=== PATIENT | female | born 2000 | race Caucasian/White ===

== ENCOUNTER 2021-01-28 07:19 | Observation (INO) ==
[2021-01-28] MEDS ORDERED: ONDANSETRON INJ 2 MG/ML 2 ML VIAL IV STA (09:35)
[2021-01-28] MEDS ORDERED: SODIUM CHLORIDE 0.9% 1000ML 1,000 ML IV STA (09:35)
[2021-01-28] MEDS ORDERED: MoRPHine SULFATE 4 MG/ML 1 ML CARP\\VIAL IV STA (09:35)
--- NOTE | 2021-01-28 09:40 | Emergency Department Note ---
History of Present Illness General Chief complaint: Abdominal Pain Stated complaint: CROHNS FLARE UP - ABDOMINAL PAIN x 6DYS Time Seen by Provider: 01/28/21 07:22 Source: patient Mode of arrival: ambulatory Limitations: no limitations History of Present Illness Maximum Pain Intensity: 5 This patient is a 21-year-old female who comes in complaining of abdominal pain and a Crohn's flareup. She says she has been having symptoms for about 6 days she moved here from [place] a couple months ago has no local doctor or GI specialist. Abdominal pain is diffuse and intermittent she has had some diarrhea without blood she had one episode of vomiting but none since yesterday. No fever chills she is had the Covid vaccine x2. Nothing particular makes her better or worse. No dysuria hematuria denies . She says she was hospitalized in [facility] in [place] about a month and a half or 2 ago for bowel obstruction. She is on no current medications for Crohns. She has had no Crohn's surgery she did have an appendectomy Home Medications Medication Instructions Recorded Confirmed Type dicyclomine 20 mg tablet 20 mg PO BID PRN 01/28/21 01/28/21 History duloxetine 30 mg capsule,delayed 90 mg PO DAILY 01/28/21 01/28/21 History release (Cymbalta) trazodone 100 mg tablet 200 mg PO HS PRN 01/28/21 01/28/21 History Allergies Allergy/AdvReac Type Severity Reaction Status Date / Time No Known Allergies Allergy Unverified 01/28/21 08:21 Past Med/Surg History Medical History Crohn's disease Depression with anxiety Insomnia Surgical History History of adenoidectomy History of appendectomy History of tonsillectomy Social History Smoking Status: Current every day smoker Feels Safe at Home: Yes Immunizations: Past medical historyCrohn's disease. Appendectomy. Social history. She does smoke. Does not drink significantly. Denies drug use. 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 Review of Systems A total of 10 systems reviewed and were otherwise negative Physical Exam Vital Signs Vital Signs - 24 hr 01/28/21 07:24 01/28/21 09:30 01/28/21 11:00 Temperature 36.7 C Temperature Source Oral Pulse Rate 95 H Pulse Rate [Left Finger] 85 Respiratory Rate 18 18 Respiratory Effort / Characteristics Non-Labored Respiratory Depth Normal Respiratory Pattern Regular Blood Pressure 134/85 Blood Pressure [Right Arm] 124/88 126/88 Blood Pressure Mean 101 Blood Pressure Mean [Right Arm] 100 100 Blood Pressure Position [Right Arm] Lying Pulse Oximetry 99 97 Oxygen Delivery Method Room Air Room Air Sepsis Recent Fever Within 48 Hours No Sepsis New/Unexplained Change in Mental Status No Sepsis Action Taken by Nursing No Action Required 01/28/21 13:00 Temperature Temperature Source Pulse Rate Pulse Rate [Left Finger] Respiratory Rate 18 Respiratory Effort / Characteristics Non-Labored Respiratory Depth Normal Respiratory Pattern Regular Blood Pressure Blood Pressure [Right Arm] Blood Pressure Mean Blood Pressure Mean [Right Arm] Blood Pressure Position [Right Arm] Pulse Oximetry Oxygen Delivery Method Room Air Sepsis Recent Fever Within 48 Hours Sepsis New/Unexplained Change in Mental Status Sepsis Action Taken by Nursing General: Well developed well nourished young female who appears in no acute distress, breathing comfortably on room air. Normal speech HEENT: Normal cephalic atraumatic. Pupils are equal round and reactive to light. Extraocular movements are intact. Oropharynx is pink with moist mucous membranes. No swelling of the mouth lips or tongue. Neck: Supple with a midline trachea. No meningeal signs or stiffness, no JVD or bruits. No Stridor. Chest: Clear to auscultation bilaterally. No wheezes or rhonchi. No increased work of breathing. Heart: Regular rate and rhythm without murmurs or gallops. Abdomen: Soft normally diffusely tender, nondistended without rebound guarding or rigidity. Extremities: No cyanosis clubbing or edema. No calf tenderness or assymetry Spine/Back. Non tender to palpation. No CVA tenderness Skin: Good turgor without rashes. Neurologic exam: Cranial nerves two through 12 are intact. Motor and sensation are intact and symmetrical throughout. Course Administered Medications Discontinued Medications Sodium Chloride (Nss 1000ml) 1,000 mls @ 999 mls/hr IV .Q1H1M STA Stop: 01/28/21 10:35 Last Admin: 01/28/21 10:30 Dose: 999 mls/hr Documented by: [id number] Ioversol (Optiray 320 100ml) 94 ml IV ONCE ONE Stop: 01/28/21 11:10 Last Admin: 01/28/21 11:09 Dose: 94 ml Documented by: [id number] Morphine Sulfate (Morphine Sulfate 4 Mg/Ml 1 Ml Carp\Vial) 4 mg IV NOW STA Stop: 01/28/21 09:36 Last Admin: 01/28/21 10:30 Dose: 4 mg Documented by: [id number] Ondansetron HCl (Ondansetron Inj 2 Mg/Ml 2 Ml Vial) 4 mg IV NOW STA Stop: 01/28/21 09:36 Last Admin: 01/28/21 10:30 Dose: 4 mg Documented by: [id number] Medical Decision Making Differential Diagnosis Crohn's exacerbation, bowel obstruction, infection, electrolyte or metabolic abnormality, Home Medications Current Medication List: was personally reviewed by me Laboratory Data Attestation: I reviewed the patient's lab results. Result diagrams: 01/28/21 10:20 01/28/21 10:20 Lab Results 01/28/21 01/28/21 01/28/21 Range/Units 07:50 10:20 10:20 WBC 11.72 H (4.8-10.8) K/uL RBC 5.19 (4.2-5.4) M/uL Hgb 15.7 (12.0-16.0) g/dL Hct 47.1 H (37-47) % MCV 90.8 (80-100) fL MCH 30.3 (25-34) pg MCHC 33.3 (32-36) g/dL RDW Std Deviation 42.9 (36.4-46.3) fL RDW Coeff of April 13.0 (11.5-14.5) % Plt Count 549 H (130-400) K/uL MPV 9.9 (7.4-10.4) fL Immature Gran % (Auto) 0.3 % Neut % (Auto) 68.1 % Lymph % (Auto) 23.3 % [place] % (Auto) 6.8 % Eos % (Auto) 1.2 % Baso % (Auto) 0.3 % Neut # (Auto) 7.98 H (1.4-6.5) K/uL Lymph # (Auto) 2.73 (1.2-3.4) K/uL [place] # (Auto) 0.80 H (0.11-0.59) K/uL Eos # (Auto) 0.14 (0-0.5) K/uL Baso # (Auto) 0.03 (0-0.2) K/uL Immature Gran # (Auto) 0.04 H (0.00-0.02) K/uL ESR (0-20) mm/hr Sodium 136 (136-145) mmol/L Potassium 4.1 (3.5-5.1) mmol/L Chloride 105 (98-107) mmol/L Carbon Dioxide 26 (21-32) mmol/L Anion Gap 5.0 (3-11) BUN 11 (7-18) mg/dl Creatinine 0.79 (0.6-1.2) mg/dl Est Cr Clr Drug Dosing 119.0 ml/min Est GFR ( Amer) 124.9 ml/min Est GFR (Non-Af Amer) 107.8 ml/min BUN/Creatinine Ratio 14.6 (10-20) Glucose 86 (70-99) mg/dl Calcium 10.0 (8.5-10.1) mg/dl Total Bilirubin 0.6 (0.2-1) mg/dl AST 14 L (15-37) U/L ALT 29 (12-78) U/L Alkaline Phosphatase 55 (45-117) U/L C-Reactive Protein (0-0.29) mg/dl Total Protein 8.4 H (6.4-8.2) gm/dl Albumin 3.9 (3.4-5.0) gm/dl Globulin 4.5 H (2.5-4.0) gm/dl Albumin/Globulin Ratio 0.9 (0.9-2) Lipase 103 (73-393) U/L HCG, Qual (Negative) Urine Color Yellow Urine Appearance Clear (Clear) Urine pH 6.5 (4.5-7.5) Ur Specific [place] 1.023 (1.000-1.030) Urine Protein Negative (Negative) Urine Glucose (UA) Negative (Negative) Urine Ketones 1+ H (Negative) Urine Blood Negative (Negative) Urine Nitrite Negative (Negative) Urine Bilirubin Negative (Negative) Urine Urobilinogen Negative (Negative) Ur Leukocyte Esterase Negative (Negative) 01/28/21 01/28/21 01/28/21 Range/Units 10:20 10:20 10:20 WBC (4.8-10.8) K/uL RBC (4.2-5.4) M/uL Hgb (12.0-16.0) g/dL Hct (37-47) % MCV (80-100) fL MCH (25-34) pg MCHC (32-36) g/dL RDW Std Deviation (36.4-46.3) fL RDW Coeff of April (11.5-14.5) % Plt Count (130-400) K/uL MPV (7.4-10.4) fL Immature Gran % (Auto) % Neut % (Auto) % Lymph % (Auto) % [place] % (Auto) % Eos % (Auto) % Baso % (Auto) % Neut # (Auto) (1.4-6.5) K/uL Lymph # (Auto) (1.2-3.4) K/uL [place] # (Auto) (0.11-0.59) K/uL Eos # (Auto) (0-0.5) K/uL Baso # (Auto) (0-0.2) K/uL Immature Gran # (Auto) (0.00-0.02) K/uL ESR 39 H (0-20) mm/hr Sodium (136-145) mmol/L Potassium (3.5-5.1) mmol/L Chloride (98-107) mmol/L Carbon Dioxide (21-32) mmol/L Anion Gap (3-11) BUN (7-18) mg/dl Creatinine (0.6-1.2) mg/dl Est Cr Clr Drug Dosing ml/min Est GFR ( Amer) ml/min Est GFR (Non-Af Amer) ml/min BUN/Creatinine Ratio (10-20) Glucose (70-99) mg/dl Calcium (8.5-10.1) mg/dl Total Bilirubin (0.2-1) mg/dl AST (15-37) U/L ALT (12-78) U/L Alkaline Phosphatase (45-117) U/L C-Reactive Protein 2.02 H (0-0.29) mg/dl Total Protein (6.4-8.2) gm/dl Albumin (3.4-5.0) gm/dl Globulin (2.5-4.0) gm/dl Albumin/Globulin Ratio (0.9-2) Lipase (73-393) U/L HCG, Qual Negative (Negative) Urine Color Urine Appearance (Clear) Urine pH (4.5-7.5) Ur Specific [place] (1.000-1.030) Urine Protein (Negative) Urine Glucose (UA) (Negative) Urine Ketones (Negative) Urine Blood (Negative) Urine Nitrite (Negative) Urine Bilirubin (Negative) Urine Urobilinogen (Negative) Ur Leukocyte Esterase (Negative) Imaging Data Radiologist's Impression: Abdomen/Pelvis CT 01/28/21 09:[address] WITH IV CONTRAST CT DOSE: 847.68 mGy.cm HISTORY: Acute generalized abdominal pain with history of Crohn's disease abd pain, crohns hx TECHNIQUE: Multiaxial CT images of the abdomen and pelvis were performed following the IV administration of 94 cc of Optiray, A dose lowering technique was utilized adhering to the principles of ALARA. COMPARISON STUDY: None. FINDINGS: Imaged inferior cardiac chambers are unremarkable. Clear lung bases. No pneumatosis or pneumoperitoneum. The spleen, pancreas, gallbladder, adrenal glands and liver appear unremarkable. Mild focal fatty infiltration of the left hepatic lobe adjacent to the falciform ligament. Patent portal vein. Unremarkable kidneys. 5 mm hypodensity of the superior pole left kidney is too small to characterize suggestive of a probable cyst. No hydronephrosis. Decompressed urinary bladder with mild wall thickening. Unremarkable uterus and adnexa. Aorta and IVC are unremarkable. Tiny hiatal hernia. Small volume of free pelvic fluid. Mild colonic diverticulosis. Prominent and mildly enlarged mesenteric lymph nodes include a 1.1 x 0.9 cm lymph node of the right lower quadrant mesentery. Appendectomy. There is a 6 cm segment of circumferential wall thickening with mucosal hyperemia involving segment of the distal ileum as seen on image 320 series 3. This report was [place] severe luminal narrowing with immediate upstream dilation of the ileum measuring up to 5.5 cm. There is an adjacent sinus tract with tethering of the mesentery on image 305. Enteroenteric fistula is partially seen on image 291 involving this inflamed loop of ileum. Mild associated interloop edema. There is additional wall thickening with mucosal hyperemia involving the distal ileum proximal to the dilated loop. Unremarkable soft tissues. There is no acute fracture. 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 Questioned subtle erosions of the SI joints. IMPRESSION: 1. 6 cm segment of distal ileum demonstrates circumferential wall thickening with mucosal hyperemia compatible with acute on chronic inflammatory bowel disease. Severe associated luminal narrowing compatible with a stricture results in mild associated upstream dilation. 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 3. Mild adenopathy of the right lower quadrant mesentery, likely reactive. 4. Trace free pelvic fluid. 5. Appendectomy. ACT 112: Negative or not required by law. The above report was generated using voice recognition software. It may contain grammatical, syntax or spelling errors. Electronically signed by: Brent Farley M.D. 01/28/2021 11:54 AM MDM Narrative This patient comes in as scribed above. She was placed on a quality assurance monitor final in room A3. She is here for treatment evaluation of abdominal pain which she feels is likely exacerbation of her Crohn's. IV access was established and she was hydrated with a 1 L IV normal saline bolus. She was given morphine 4 mg IV and Zofran 4 mg IV for pain and nausea management. Multiple blood testing was obtained as well as CAT scan. Her white count is mildly elevated she was feeling better with the medication however she does not feel well enough to going home. She has no acute electrolyte or metabolic abnormality. Her CAT scan is markedly abnormal in regards to significant Crohn's changes. 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 I did consult RASHEED Smalls and both her and her attending from GI saw the patient in the ED and feel she should be admitted for further treatment evaluation. she is currently on no medications. I have consulted Dr. Em from [facility] hospitalist to see her in the ER for these measures. Continuous cardiac monitoring: Orders placed in EMR for continuous cardiac monitoring which shows normal sinus rhythm with a rate of 85 Impression & Plan Abdominal pain, History of Crohn's disease, Not currently , Vomiting Discharge Plan Visit Data Chief Complaint: Abdominal Pain Stated Complaint: CROHNS FLARE UP - ABDOMINAL PAIN x 6DYS ED Provider: Aristeo Damico Discharge Problem: Abdominal pain, History of Crohn's disease, Not currently , Vomiting Forms Stand Alone Forms: My [facility] Prescriptions Prescriptions: No Action dicyclomine [Bentyl] 20 mg Tablet 20 mg PO BID PRN (Reason: Pain) RF: 0 duloxetine [Cymbalta] 30 mg Capsule,Delayed Release(Dr/Ec) 90 mg PO DAILY RF: 0 trazodone 100 mg Tablet 200 mg PO HS PRN (Reason: Sleep) RF: 0 Referrals Referrals: PCP,NO [Primary Care Provider] -
[2021-01-28 10:16] LABS: Appearance Urine Clear (Clear); Bilirubin Urine Negative (Negative); Blood Urine Negative (Negative); Color Urine Yellow; Glucose Urine UA Negative (Negative); Ketones Urine 1+ (Negative); Leukocyte Esterase Urine Negative (Negative); Nitrite Urine Negative (Negative); Protein Urine Negative (Negative); Specific Gravity Urine 1.023 (1.000-1.030); Urobilinogen Urine Negative (Negative); pH Urine 6.5 (4.5-7.5)
[2021-01-28 10:34] LABS: Basophils # (auto) 0.03 K/uL (0-0.2); Basophils % (auto) 0.3 %; Eosinophils # (auto) 0.14 K/uL (0-0.5); Eosinophils % (auto) 1.2 %; Hematocrit (blood only) 47.1 % (37-47); Hemoglobin 15.7 g/dL (12.0-16.0); Immature Granulocytes # (auto) 0.04 K/uL (0.00-0.02); Immature Granulocytes % (auto) 0.3 %; Lymphocytes # (auto) 2.73 K/uL (1.2-3.4); Lymphocytes % (auto) 23.3 %; Mean Corpuscular Hemoglobin 30.3 pg (25-34); Mean Corpuscular Hgb Conc 33.3 g/dL (32-36); Mean Corpuscular Volume 90.8 fL (80-100); Mean Platelet Volume 9.9 fL (7.4-10.4); Monocytes % (auto) 6.8 %; Neutrophils # (auto) 7.98 K/uL (1.4-6.5); Neutrophils % (auto) 68.1 %; Platelet Count 549 K/uL (130-400); RDW Standard Deviation 42.9 fL (36.4-46.3); Red Blood Count 5.19 M/uL (4.2-5.4); White Blood Count 11.72 K/uL (4.8-10.8)
[2021-01-28 10:52] LABS: Albumin Level 3.9 gm/dl (3.4-5.0); BUN Creatinine Ratio 14.6 (10-20); Est GFR (African American) 124.9 ml/min; Est GFR (Non-African American) 107.8 ml/min; Potassium 4.1 mmol/L (3.5-5.1)
[2021-01-28 10:54] LABS: Albumin Globulin Ratio 0.9 (0.9-2); Bilirubin,Total 0.6 mg/dl (0.2-1); Globulin 4.5 gm/dl (2.5-4.0); Total Protein 8.4 gm/dl (6.4-8.2)
[2021-01-28] MEDS ORDERED: OPTIRAY 320 100ml IV ONE (11:09)
[2021-01-28 11:19] LABS: Pregnancy Test, Serum Negative (Negative)
--- NOTE | 2021-01-28 11:55 | CT Scan Report ---
ABDOMEN AND PELVIS CT WITH IV CONTRAST CT DOSE: 847.68 mGy.cm HISTORY: Acute generalized abdominal pain with history of Crohn's disease abd pain, crohns hx TECHNIQUE: Multiaxial CT images of the abdomen and pelvis were performed following the IV administrat ion of 94 cc of Optiray, A dose lowering technique was utilized adhering to the principles of ALARA. COMPARISON STUDY: None. FINDINGS: Imaged inferior cardiac chambers are unremarkable. Clear lung bases. No pneumatosis or pneumoperitone um. The spleen, pancreas, gallbladder, adrenal glands and liver appear unremarkable. Mild focal fatty infiltration of the left hepatic lobe adjacent to the falciform ligament. Patent portal vein. Unrema rkable kidneys. 5 mm hypodensity of the superior pole left kidney is too small to characterize sugges tive of a probable cyst. No hydronephrosis. Decompressed urinary bladder with mild wall thickening. U nremarkable uterus and adnexa. Aorta and IVC are unremarkable. Tiny hiatal hernia. Small volume of free pelvic fluid. Mild colonic diverticulosis. Prominent and mil dly enlarged mesenteric lymph nodes include a 1.1 x 0.9 cm lymph node of the right lower quadrant mes entery. Appendectomy. There is a 6 cm segment of circumferential wall thickening with mucosal hyperem ia involving segment of the distal ileum as seen on image 320 series 3. This report was [place] severe lum inal narrowing with immediate upstream dilation of the ileum measuring up to 5.5 cm. There is an regine cent sinus tract with tethering of the mesentery on image 305. Enteroenteric fistula is partially see n on image 291 involving this inflamed loop of ileum. Mild associated interloop edema. There is addit ional wall thickening with mucosal hyperemia involving the distal ileum proximal to the dilated loop. Unremarkable soft tissues. There is no acute fracture. Sclerosis of the SI joints is suggestive of O steitis condensans ilii. Questioned subtle erosions of the SI joints. IMPRESSION: 1. 6 cm segment of distal ileum demonstrates circumferential wall thickening with mucosal hyperemia c ompatible with acute on chronic inflammatory bowel disease. Severe associated luminal narrowing wilma tible with a stricture results in mild associated upstream dilation. 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 3. Mild adenopathy of the right lower quadrant mesentery, likely reactive. 4. Trace free pelvic fluid. 5. Appendectomy. ACT 112: Negative or not required by law. The above report was generated using voice recognition software. It may contain grammatical, syntax o r spelling errors. Electronically signed by: Brent Farley M.D. 01/28/2021 11:54 AM
--- NOTE | 2021-01-28 12:53 | Gastrointestinal Consultation ---
Date of Consultation January 28, 2021 Assessment & Plan (1) Abdominal pain: 21 year old female with history of Crohn's disease, suspected medication noncompliance per discussion with patient having tried and failed MTX, 6MP, humira, remicade, entyvio, stelara and ?cimzia presenting with pain, loose stools imaging showing enteroenteric fistulas,6 cm segment of distal ileum demonstrates circumferential wall thickening with mucosal hyperemia compatible with acute on chronic inflammatory bowel disease and severe luminal narrowing compatible with a stricture results in mild associated upstream dilation. Recommend admission for additional work up and treatment NPO for bowel rest IV maintenance fluids General surgery consultation Consider c.diff and culture if loose stools more than 4 x daily Recommend IV cipro/flagyl Recommend IV methylprednisolone 20 mg q8h Would check CRP, ESR She will need to establish with colorectal surgery as an outpatient and with a center who IBD specialists [place] [facility] given her advance disease without response to available medication options Thank you for allowing us to participate in the care of this patient. Please call with any acute changes, questions or concerns. Please see addendum below with additional recommendation from my supervising physician. (2) History of Crohn's disease: Supervising Physician Co-Signing Physician Notes I have personally seen and examined the patient with RIGO Smalsl. Her note reflects my exam and findings. I agree with her impression and plan. Concerning situation given hx of non compliance. Given inflammatory stricture and fistula, she will need steroids and antibiotic course. Unclear what biologic would be useful since she states she has been "on all of them". Lamin Yi M.D. History of Present Illness Reason for Consultation: IBD Requesting Physician: Mookie Attending Physician: Mookie History of Present Illness 21 year old female with history of Crohn's disease, suspected medication noncomplaince per discussion with patient having tried and failed MTX, 6MP, humira, remicade, entyvio, stelara and maybe cimzia who was previously maintained on IV nutrition who [place] with abd pain - GI asked to evaluate for abd pain, abnormal imaging. She notes she has not been on medication for her IBD in a few years. Was doing well got about 1-2 years until three moths ago. Starting having issues with loose stools and abdominal pain and nausea. No vomiting. Was admitted about 1 month ago with SBO at OSH. Suggests she was not started on any new therapy at that time. Now w/ return of symptoms, loose stools, nausea and abd pain. No hematocehzia. No vomiting. Imaging w/ 6 cm segment of distal ileum demonstrates circumferential wall thickening with mucosal hyperemia compatible with acute on chronic inflammatory bowel disease and luminal narrowing compatible with a stricture w/ upstream dilation there is also mention of enteroenteric fistula which she notes may be chronic for her. Allergies Allergy/AdvReac Type Severity Reaction Status Date / Time No Known Allergies Allergy Unverified 01/28/21 08:21 Home Medications Medication Instructions Recorded Confirmed Type dicyclomine 20 mg tablet 20 mg PO BID PRN 01/28/21 01/28/21 History duloxetine 30 mg capsule,delayed 90 mg PO DAILY 01/28/21 01/28/21 History release (Cymbalta) trazodone 100 mg tablet 200 mg PO HS PRN 01/28/21 01/28/21 History Patient History Social History Smoking Status: Current every day smoker Feels Safe at Home: Yes Review of Systems Review of Systems: All systems reviewed & are unremarkable except as noted in HPI & below Physical Exam Constitutional: WD/WN, vitals as above Neck: trachea midline, no thyromegaly Respiratory: normal respiratory effort, lungs clear to auscultation Cardiovascular: RRR, no murmur, no edema Gastrointestinal (Abdomen): Inspection/Auscultation: abdomen normal to inspection and normal bowel sounds (decreased); abdomen not distended Percussion/Palpation: + abdomen tender (generalized w/ palpation) and abdomen soft; no guarding, abdomen not rigid, no abdominal mass and no ascites Skin: no rashes, warm and dry Results & Data ([facility] [place]) Vital Signs (Past 12 Hours) Vital Signs Temp Pulse Pulse Resp BP BP Pulse Ox 01/28/21 11:00 126/88 01/28/21 09:30 85 18 124/88 97 01/28/21 07:24 36.7 C 95 H 18 134/85 99 Laboratory Results Thank you for allowing us to participate in the care of this patient. Please call with any acute changes, questions or concerns. Please see addendum below with additional recommendation from my supervising physician.
[2021-01-28] MEDS ORDERED: CIPROFLOXACIN / D5W 400 MG/200 ML BAG IV STA (13:15)
[2021-01-28] MEDS ORDERED: metroNIDAZOLE 500 MG/100 ML BAG IV STA (13:15)
--- NOTE | 2021-01-28 13:33 | History & Physical Report ---
Date of Service January 28, 2021 Assessment & Plan (1) Crohn's disease: Plan: Per GI: NPO, IV fluids Ciprofloxacin / Metronidazole IV Solu-Medrol 20mg Q8H Consult surgery - discussed with Dr Schulz at bedside (2) Depression with anxiety: Plan: Continue duloxetine 90mg PO daily, trazodone 200mg PO HS PRN (3) Insomnia: Plan: Trazodone as above Plan: VTE Prophylaxis - low risk Diet - NPO per GI recommendations Disposition - admit to med/surg Admission and Anticipated Discharge Date Admission Date: January 28, 2021 History of Present Illness Chief Complaint: Abdominal pain Primary Care Provider: NO PCP Hilda Cifuentes is a 21 year old female with crohn's disease who presents to the ER with abdominal pain. She reports this feels like her prior Crohn's flares with 5-6 days abdominal pain, getting progressively worse, generalized, cramping pain, severity currently 4/10. Associated nausea, vomiting yesterday, diarrhea 2-3 loose (watery). She has previously failed Humira (took for 2 years) due to continued Crohn's flare ups. Other biologics she reports just stopped taking because of being stubborn (last on biologics in 2018). She is currently not on any treatment for Crohn's disease. Flare ups increased in frequency recently. Last hospitalized 1.5 months ago for 1.5 weeks with small bowel obstruction. 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 Gastroenterology recommending admission for IV antibiotics and steroids. She was referred to medicine for admission and ongoing management of this. Allergies Allergy/AdvReac Type Severity Reaction Status Date / Time No Known Allergies Allergy Unverified 01/28/21 08:21 Home Medications Medication Instructions Recorded Confirmed Type dicyclomine 20 mg tablet 20 mg PO BID PRN 01/28/21 01/28/21 History duloxetine 30 mg capsule,delayed 90 mg PO DAILY 01/28/21 01/28/21 History release (Cymbalta) trazodone 100 mg tablet 200 mg PO HS PRN 01/28/21 01/28/21 History Past Med/Surg History Medical History Crohn's disease Depression with anxiety Insomnia Surgical History History of adenoidectomy History of appendectomy History of tonsillectomy Social History Smoking Status: Never smoker Second Hand Exposure: No; Hx Alcohol Use: No Hx Substance Use: Yes Last Used Substance: Hours (ago) Communication Ability: Effective Beliefs That Will Affect Care: None Current Living Situation: Family Feels Safe at Home: Yes Assistive Devices: None Review of Systems Review of Systems: All systems reviewed & are unremarkable except as noted in HPI & below Physical Exam Constitutional: WD/WN, vitals as above Eyes: + anicteric sclerae; normal pupil size ENMT: external ear and nose normal, oropharynx normal Respiratory: normal respiratory effort, lungs clear to auscultation Cardiovascular: RRR, no murmur, no edema Gastrointestinal (Abdomen): Inspection/Auscultation: abdomen normal to inspection and normal bowel sounds Percussion/Palpation: + abdomen tender (generalized, mostly over umbilicus) and abdomen soft; no guarding and abdomen not rigid Musculoskeletal: no cyanosis or clubbing, extremities motor strength 5/5 Skin: no rashes, warm and dry Neurologic: moves all extremities and awake; not confused Psychiatric: A+Ox3, euthymic affect Genitourinary: no CVA tenderness Results & Data Results & Data ([facility]) Vital Signs (Past 12 Hours) Vital Signs Temp Pulse Pulse Resp BP BP Pulse Ox 01/28/21 11:00 126/88 01/28/21 09:30 85 18 124/88 97 01/28/21 07:24 36.7 C 95 H 18 134/85 99 Laboratory Results Abnormal lab results 01/28/21 01/28/21 01/28/21 Range/Units 07:50 10:20 10:20 WBC 11.72 H (4.8-10.8) K/uL Hct 47.1 H (37-47) % Plt Count 549 H (130-400) K/uL Neut # (Auto) 7.98 H (1.4-6.5) K/uL [place] # (Auto) 0.80 H (0.11-0.59) K/uL Immature Gran # (Auto) 0.04 H (0.00-0.02) K/uL ESR (0-20) mm/hr AST 14 L (15-37) U/L C-Reactive Protein (0-0.29) mg/dl Total Protein 8.4 H (6.4-8.2) gm/dl Globulin 4.5 H (2.5-4.0) gm/dl Urine Ketones 1+ H (Negative) 01/28/21 01/28/21 Range/Units 10:20 10:20 WBC (4.8-10.8) K/uL Hct (37-47) % Plt Count (130-400) K/uL Neut # (Auto) (1.4-6.5) K/uL [place] # (Auto) (0.11-0.59) K/uL Immature Gran # (Auto) (0.00-0.02) K/uL ESR 39 H (0-20) mm/hr AST (15-37) U/L C-Reactive Protein 2.02 H (0-0.29) mg/dl Total Protein (6.4-8.2) gm/dl Globulin (2.5-4.0) gm/dl Urine Ketones (Negative) Diagnostic Findings ABDOMEN AND PELVIS CT WITH IV CONTRAST CT DOSE: 847.68 mGy.cm HISTORY: Acute generalized abdominal pain with history of Crohn's disease abd pain, crohns hx TECHNIQUE: Multiaxial CT images of the abdomen and pelvis were performed following the IV administration of 94 cc of Optiray, A dose lowering technique was utilized adhering to the principles of ALARA. COMPARISON STUDY: None. FINDINGS: Imaged inferior cardiac chambers are unremarkable. Clear lung bases. No pneumatosis or pneumoperitoneum. The spleen, pancreas, gallbladder, adrenal glands and liver appear unremarkable. Mild focal fatty infiltration of the left hepatic lobe adjacent to the falciform ligament. Patent portal vein. Unremarkable kidneys. 5 mm hypodensity of the superior pole left kidney is too small to characterize suggestive of a probable cyst. No hydronephrosis. Decompressed urinary bladder with mild wall thickening. Unremarkable uterus and adnexa. Aorta and IVC are unremarkable. Tiny hiatal hernia. Small volume of free pelvic fluid. Mild colonic diverticulosis. Prominent and mildly enlarged mesenteric lymph nodes include a 1.1 x 0.9 cm lymph node of the right lower quadrant mesentery. Appendectomy. There is a 6 cm segment of circumferential wall thickening with mucosal hyperemia involving segment of the distal ileum as seen on image 320 series 3. This report was [place] severe luminal narrowing with immediate upstream dilation of the ileum measuring up to 5.5 cm. There is an adjacent sinus tract with t ethering of the mesentery on image 305. Enteroenteric fistula is partially seen on image 291 involving this inflamed loop of ileum. Mild associated interloop edema. There is additional wall thickening with mucosal hyperemia involving the distal ileum proximal to the dilated loop. Unremarkable soft tissues. There is no acute fracture. 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 Questioned subtle erosions of the SI joints. IMPRESSION: 1. 6 cm segment of distal ileum demonstrates circumferential wall thickening with mucosal hyperemia compatible with acute on chronic inflammatory bowel disease. Severe associated luminal narrowing compatible with a stricture results in mild associated upstream dilation. 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 3. Mild adenopathy of the right lower quadrant mesentery, likely reactive. 4. Trace free pelvic fluid. 5. Appendectomy. Medications Administered ER Medications Given: NSS 1L bolus Ondansetron 4mg IV Morphine 4mg IV Code Status & VTE Plan Code Status Full VTE Prophylaxis Plan VTE Prophylaxis will be ordered: No Reason for no VTE drug order: Treatment not indicated Reason for no VTE mechanical prophylaxis: Treatment not indicated PG Care Time/CCT Total # of Minutes Spent Total Time Spent with Patient: Total time spent is greater than 50% in coordination of care (as documented) at patient's floor/unit and/or counseling patient: Coding Level of Care Code 37895 Initial Inpt Care Lvl 2 Diagnoses Depression with anxiety F41.8 Insomnia G47.00 Crohn's disease K50.90
--- NOTE | 2021-01-28 14:07 | Surgery Consultation ---
Date of Consultation January 28, 2021 Assessment & Plan (1) Crohn's disease: No acute abdominal findings. Mild small bowel dilation, no obstructive symptoms. Seen by GI. Agree with outpatient colorectal evaluation. Supervising Physician Co-Signing Physician Notes Patient appears to be very stable with evidence of ileal Crohn's disease-does not appear to be obstructed Thickened small bowel with a possible entero-enteral fistula Current treatment involves IV steroids and antibiotics-no plan for surgical intervention She will obviously require colorectal surgery follow-up at a tertiary care center likely [facility] or [facility] in the future We will consider transfer if she requires more urgent surgery History of Present Illness History of Present Illness 21 y/o female with h/o Crohn's diagnosed at age 15 with several days of abdominal pain. No nause or vomiting. Had some loose stool within the past few days. Moved to [place] from [place] about a month ago to live with her mother. Has been on multiple meds for her Crohn's with limited results, not on any meds currently. Was admitted about 6 weeks ago in [place] for flare with SBO. Allergies Allergy/AdvReac Type Severity Reaction Status Date / Time No Known Allergies Allergy Unverified 01/28/21 08:21 Home Medications Medication Instructions Recorded Confirmed Type dicyclomine 20 mg tablet 20 mg PO BID PRN 01/28/21 01/28/21 History duloxetine 30 mg capsule,delayed 90 mg PO DAILY 01/28/21 01/28/21 History release (Cymbalta) trazodone 100 mg tablet 200 mg PO HS PRN 01/28/21 01/28/21 History Patient History Medical History Crohn's disease Depression with anxiety Insomnia Surgical History History of adenoidectomy History of appendectomy History of tonsillectomy Social History Smoking Status: Current every day smoker Feels Safe at Home: Yes Review of Systems Constitutional: no fever and no chills Gastrointestinal: + abdominal pain and + diarrhea/loose stools; no nausea and no vomiting Physical Exam Constitutional: WD/WN, vitals as above Respiratory: normal respiratory effort, lungs clear to auscultation Cardiovascular: RRR, no murmur, no edema Gastrointestinal (Abdomen): Inspection/Auscultation: abdomen not distended Percussion/Palpation: + abdomen tender (mild RLQ) and abdomen soft; no guarding Results & Data ([facility]) Vital Signs (Past 12 Hours) Vital Signs Temp Pulse Pulse Resp BP BP Pulse Ox 01/28/21 11:00 126/88 01/28/21 09:30 85 18 124/88 97 01/28/21 07:24 36.7 C 95 H 18 134/85 99 PG Care Time/CCT Total # of Minutes Spent Total Time Spent with Patient: Total time spent is greater than 50% in coordination of care (as documented) at patient's floor/unit and/or counseling patient: Coding Level of Care Code 66441 Inpt Consult Level 3 Diagnoses Crohn's disease K50.90
[2021-01-28] MEDS: LACTATED RINGER'S 1,000 ML IV SCH ×2 (15:40→23:17)
[2021-01-28] MEDS ORDERED: traZODone HCL 100 MG TAB PO PRN (20:01)
[2021-01-28] MEDS ORDERED: ACETAMINOPHEN 1,000 MG/100 ML VIAL IV PRN (20:55)
[2021-01-28] MEDS ORDERED: MoRPHine SULFATE 2 MG/ML CARP IV PRN (20:55)
[2021-01-28] MEDS: metroNIDAZOLE 500 MG/100 ML BAG IV SCH (23:17)
[2021-01-28] MEDS: methylPREDNISolone 20 MG in SYRINGE 0 ML IV SCH (23:17)
[2021-01-29] MEDS ORDERED: CIPROFLOXACIN / D5W 400 MG/200 ML BAG IV SCH (04:00)
[2021-01-29] MEDS: metroNIDAZOLE 500 MG/100 ML BAG IV SCH (08:28)
[2021-01-29] MEDS: methylPREDNISolone 20 MG in SYRINGE 0 ML IV SCH (08:29)
--- NOTE | 2021-01-29 08:37 | Surgery Progress Note ---
Date of Service January 29, 2021 Assessment & Plan (1) Crohn's disease: Plan: consider clear liquids later today or tomorrow management per medicine/GI no acute surgical issues, eventual outpatient colorectal eval [facility] surgery covering the weekend Admission and Anticipated Discharge Date Admission Date: January 28, 2021 Subjective less pain, no nausea Physical Exam Gastrointestinal (Abdomen): Inspection/Auscultation: abdomen not distended Percussion/Palpation: abdomen soft Results & Data ([facility]) Vital Signs (Past 12 Hours) Vital Signs Temp Pulse Resp BP Pulse Ox 01/29/21 07:31 36.5 C 67 16 112/75 97 01/28/21 23:10 36.7 C 64 16 93/57 L 98 PG Care Time/CCT Total # of Minutes Spent Total Time Spent with Patient: Total time spent is greater than 50% in coordination of care (as documented) at patient's floor/unit and/or counseling patient: Coding Level of Care Code 91507 Subseq Hosp Care Lvl 1 Diagnoses Crohn's disease K50.90
[2021-01-29] MEDS ORDERED: DULoxetine HCL 30 MG CAP PO SCH (09:00)
--- NOTE | 2021-01-29 09:23 | Gastroenterology Progress Note ---
Date of Service January 29, 2021 Assessment & Plan (1) Abdominal pain: Plan: 21 year old female with history of Crohn's disease, suspected medication noncompliance per discussion with patient having tried and failed MTX, 6MP, humira, remicade, entyvio, stelara and ?cimzia presenting with pain, loose stools imaging showing enteroenteric fistulas,6 cm segment of distal ileum demonstrates circumferential wall thickening with mucosal hyperemia compatible with acute on chronic inflammatory bowel disease and severe luminal narrowing compatible with a stricture results in mild associated upstream dilation. No GI contraindication to clear liquid then advance to low residue as tolerated IV maintenance fluids Consider c.diff and culture if loose stools more than 4 x daily Recommend IV cipro/flagyl Recommend IV methylprednisolone 20 mg q8h Would check CRP, ESR She will need to establish with colorectal surgery as an outpatient and with a center who IBD specialists ie [facility] given her advance disease without response to available medication options, please help arrange this at time of discharge Thank you for allowing us to participate in the care of this patient. Please call with any acute changes, questions or concerns. Please see addendum below with additional recommendation from my supervising physician. (2) History of Crohn's disease: Admission and Anticipated Discharge Date Admission Date: January 28, 2021 Supervising Physician Co-Signing Physician Notes I saw and evaluated the patient. She has a long history of inflammatory bowel disease and has failed multiple different biologic. Given the severity of her imaging findings and disease presentation perhaps she would be best served by seeing a inflammatory bowel disease specialist as mentioned by my partner Dr. Yi. Recommendations Complete a 10-day course of Cipro and Flagyl Recommend transition to prednisone 40 mg daily for 1 week then 30 mg daily for 1 week then 20 mg daily for 1 week then 10 mg/day Patient will need follow-up with an IBD specialist either at [facility] or perhaps [facility] in [place] Subjective Feeling better since admitted Less abd pain No nausea, vomiting No BM yet this AM Denies black/bloody stools Review of Systems Review of Systems: All systems reviewed & are unremarkable except as noted in HPI & below Physical Exam Constitutional: WD/WN, vitals as above Neck: trachea midline, no thyromegaly Respiratory: normal respiratory effort, lungs clear to auscultation Cardiovascular: RRR, no murmur, no edema Gastrointestinal (Abdomen): Inspection/Auscultation: abdomen normal to inspection and normal bowel sounds (decreased); abdomen not distended Percussion/Palpation: + abdomen tender (generalized w/ palpation) and abdomen soft; no guarding, abdomen not rigid, no abdominal mass and no ascites Skin: no rashes, warm and dry Results & Data ([facility]) Vital Signs (Past 12 Hours) Vital Signs Temp Pulse Resp BP Pulse Ox 01/29/21 07:31 36.5 C 67 16 112/75 97 01/28/21 23:10 36.7 C 64 16 93/57 L 98 Laboratory Results 01/28/21 01/28/21 01/28/21 Range/Units 14:05 14:05 10:20 WBC (4.8-10.8) K/uL RBC (4.2-5.4) M/uL Hgb (12.0-16.0) g/dL Hct (37-47) % MCV (80-100) fL MCH (25-34) pg MCHC (32-36) g/dL RDW Std Deviation (36.4-46.3) fL RDW Coeff of April (11.5-14.5) % Plt Count (130-400) K/uL MPV (7.4-10.4) fL Immature Gran % (Auto) % Neut % (Auto) % Lymph % (Auto) % [place] % (Auto) % Eos % (Auto) % Baso % (Auto) % Neut # (Auto) (1.4-6.5) K/uL Lymph # (Auto) (1.2-3.4) K/uL [place] # (Auto) (0.11-0.59) K/uL Eos # (Auto) (0-0.5) K/uL Baso # (Auto) (0-0.2) K/uL Immature Gran # (Auto) (0.00-0.02) K/uL ESR (0-20) mm/hr Sodium (136-145) mmol/L Potassium (3.5-5.1) mmol/L Chloride (98-107) mmol/L Carbon Dioxide (21-32) mmol/L Anion Gap (3-11) BUN (7-18) mg/dl Creatinine (0.6-1.2) mg/dl Est Cr Clr Drug Dosing ml/min Est GFR ( Amer) ml/min Est GFR (Non-Af Amer) ml/min BUN/Creatinine Ratio (10-20) Glucose (70-99) mg/dl Calcium (8.5-10.1) mg/dl Total Bilirubin (0.2-1) mg/dl AST (15-37) U/L ALT (12-78) U/L Alkaline Phosphatase (45-117) U/L C-Reactive Protein 2.02 H (0-0.29) mg/dl Total Protein (6.4-8.2) gm/dl Albumin (3.4-5.0) gm/dl Globulin (2.5-4.0) gm/dl Albumin/Globulin Ratio (0.9-2) Lipase (73-393) U/L HCG, Qual (Negative) Urine Color Urine Appearance (Clear) Urine pH (4.5-7.5) Ur Specific [place] (1.000-1.030) Urine Protein (Negative) Urine Glucose (UA) (Negative) Urine Ketones (Negative) Urine Blood (Negative) Urine Nitrite (Negative) Urine Bilirubin (Negative) Urine Urobilinogen (Negative) Ur Leukocyte Esterase (Negative) COVID-19 Eval Order Covid19 at [facility] SARS-CoV-2 (PCR) NEGATIVE (Negative) 01/28/21 01/28/21 01/28/21 Range/Units 10:20 10:20 10:20 WBC (4.8-10.8) K/uL RBC (4.2-5.4) M/uL Hgb (12.0-16.0) g/dL Hct (37-47) % MCV (80-100) fL MCH (25-34) pg MCHC (32-36) g/dL RDW Std Deviation (36.4-46.3) fL RDW Coeff of April (11.5-14.5) % Plt Count (130-400) K/uL MPV (7.4-10.4) fL Immature Gran % (Auto) % Neut % (Auto) % Lymph % (Auto) % [place] % (Auto) % Eos % (Auto) % Baso % (Auto) % Neut # (Auto) (1.4-6.5) K/uL Lymph # (Auto) (1.2-3.4) K/uL [place] # (Auto) (0.11-0.59) K/uL Eos # (Auto) (0-0.5) K/uL Baso # (Auto) (0-0.2) K/uL Immature Gran # (Auto) (0.00-0.02) K/uL ESR 39 H (0-20) mm/hr Sodium 136 (136-145) mmol/L Potassium 4.1 (3.5-5.1) mmol/L Chloride 105 (98-107) mmol/L Carbon Dioxide 26 (21-32) mmol/L Anion Gap 5.0 (3-11) BUN 11 (7-18) mg/dl Creatinine 0.79 (0.6-1.2) mg/dl Est Cr Clr Drug Dosing 119.0 ml/min Est GFR ( Amer) 124.9 ml/min Est GFR (Non-Af Amer) 107.8 ml/min BUN/Creatinine Ratio 14.6 (10-20) Glucose 86 (70-99) mg/dl Calcium 10.0 (8.5-10.1) mg/dl Total Bilirubin 0.6 (0.2-1) mg/dl AST 14 L (15-37) U/L ALT 29 (12-78) U/L Alkaline Phosphatase 55 (45-117) U/L C-Reactive Protein (0-0.29) mg/dl Total Protein 8.4 H (6.4-8.2) gm/dl Albumin 3.9 (3.4-5.0) gm/dl Globulin 4.5 H (2.5-4.0) gm/dl Albumin/Globulin Ratio 0.9 (0.9-2) Lipase 103 (73-393) U/L HCG, Qual Negative (Negative) Urine Color Urine Appearance (Clear) Urine pH (4.5-7.5) Ur Specific [place] (1.000-1.030) Urine Protein (Negative) Urine Glucose (UA) (Negative) Urine Ketones (Negative) Urine Blood (Negative) Urine Nitrite (Negative) Urine Bilirubin (Negative) Urine Urobilinogen (Negative) Ur Leukocyte Esterase (Negative) COVID-19 Eval Order SARS-CoV-2 (PCR) (Negative) 01/28/21 01/28/21 Range/Units 10:20 07:50 WBC 11.72 H (4.8-10.8) K/uL RBC 5.19 (4.2-5.4) M/uL Hgb 15.7 (12.0-16.0) g/dL Hct 47.1 H (37-47) % MCV 90.8 (80-100) fL MCH 30.3 (25-34) pg MCHC 33.3 (32-36) g/dL RDW Std Deviation 42.9 (36.4-46.3) fL RDW Coeff of April 13.0 (11.5-14.5) % Plt Count 549 H (130-400) K/uL MPV 9.9 (7.4-10.4) fL Immature Gran % (Auto) 0.3 % Neut % (Auto) 68.1 % Lymph % (Auto) 23.3 % [place] % (Auto) 6.8 % Eos % (Auto) 1.2 % Baso % (Auto) 0.3 % Neut # (Auto) 7.98 H (1.4-6.5) K/uL Lymph # (Auto) 2.73 (1.2-3.4) K/uL [place] # (Auto) 0.80 H (0.11-0.59) K/uL Eos # (Auto) 0.14 (0-0.5) K/uL Baso # (Auto) 0.03 (0-0.2) K/uL Immature Gran # (Auto) 0.04 H (0.00-0.02) K/uL ESR (0-20) mm/hr Sodium (136-145) mmol/L Potassium (3.5-5.1) mmol/L Chloride (98-107) mmol/L Carbon Dioxide (21-32) mmol/L Anion Gap (3-11) BUN (7-18) mg/dl Creatinine (0.6-1.2) mg/dl Est Cr Clr Drug Dosing ml/min Est GFR ( Amer) ml/min Est GFR (Non-Af Amer) ml/min BUN/Creatinine Ratio (10-20) Glucose (70-99) mg/dl Calcium (8.5-10.1) mg/dl Total Bilirubin (0.2-1) mg/dl AST (15-37) U/L ALT (12-78) U/L Alkaline Phosphatase (45-117) U/L C-Reactive Protein (0-0.29) mg/dl Total Protein (6.4-8.2) gm/dl Albumin (3.4-5.0) gm/dl Globulin (2.5-4.0) gm/dl Albumin/Globulin Ratio (0.9-2) Lipase (73-393) U/L HCG, Qual (Negative) Urine Color Yellow Urine Appearance Clear (Clear) Urine pH 6.5 (4.5-7.5) Ur Specific [place] 1.023 (1.000-1.030) Urine Protein Negative (Negative) Urine Glucose (UA) Negative (Negative) Urine Ketones 1+ H (Negative) Urine Blood Negative (Negative) Urine Nitrite Negative (Negative) Urine Bilirubin Negative (Negative) Urine Urobilinogen Negative (Negative) Ur Leukocyte Esterase Negative (Negative) COVID-19 Eval Order SARS-CoV-2 (PCR) (Negative) (1) Abdominal pain Abdominal location: generalized Qualified Code(s): R10.84 - Generalized abdominal pain
[2021-01-29] MEDS: LACTATED RINGER'S 1,000 ML IV SCH ×2 (12:01→12:43)
[2021-01-29] MEDS ORDERED: ONDANSETRON INJ 2 MG/ML 2 ML VIAL IV STA (15:11)
--- NOTE | 2021-01-29 17:17 | Discharge Summary ---
Date of Service January 29, 2021 Admission HPI Per Admitting Provider Hilda Cifuentes is a 21 year old female with crohn's disease who presents to the ER with abdominal pain. She reports this feels like her prior Crohn's flares with 5-6 days abdominal pain, getting progressively worse, generalized, cramping pain, severity currently 4/10. Associated nausea, vomiting yesterday, diarrhea 2-3 loose (watery). She has previously failed Humira (took for 2 years) due to continued Crohn's flare ups. Other biologics she reports just stopped taking because of being stubborn (last on biologics in 2018). She is currently not on any treatment for Crohn's disease. Flare ups increased in frequency recently. Last hospitalized 1.5 months ago for 1.5 weeks with small bowel obstruction. 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 Gastroenterology recommending admission for IV antibiotics and steroids. She was referred to medicine for admission and ongoing management of this. Principal Diagnosis 1. Abdominal pain with nauseaCrohn's flare 2. Enteroenteric fistula Discharge Exam General: Resting comfortably in her hospital bed. NAD. HEENT: Head is AT/NC buccal mucosa is moist and pink Neck: No JVD. Negative hepatojugular reflex Cardiac: RRR without M/G/R Lungs: CTA without W/R/R Abdomen: Normoactive X4. Soft and nontender in all quadrants. Extremities: No peripheral clubbing cyanosis or edema Neuro: A&O X4 cranial nerves II through XII are grossly intact no focal neuro deficits Skin: No obvious skin lesions or rashes Psych: Appropriate affect pleasant and cooperative Discharge Data Allergies Allergy/AdvReac Type Severity Reaction Status Date / Time No Known Allergies Allergy Unverified 01/28/21 08:21 Consultations 01/28/21 13:13 Consult General Surgery Routine Assessment & Plan (1) Crohn's disease: No acute abdominal findings. Mild small bowel dilation, no obstructive symptoms. Seen by GI. Agree with outpatient colorectal evaluation. 01/28/21 13:15 ED Decision to Admit Stat 01/28/21 13:17 Consult Gastroenterology Routine Assessment & Plan (1) Abdominal pain: Plan: 21 year old female with history of Crohn's disease, suspected medication noncompliance per discussion with patient having tried and failed MTX, 6MP, humira, remicade, entyvio, stelara and ?cimzia presenting with pain, loose stools imaging showing enteroenteric fistulas,6 cm segment of distal ileum demonstrates circumferential wall thickening with mucosal hyperemia compatible with acute on chronic inflammatory bowel disease and severe luminal narrowing compatible with a stricture results in mild associated upstream dilation. No GI contraindication to clear liquid then advance to low residue as tolerated IV maintenance fluids Consider c.diff and culture if loose stools more than 4 x daily Recommend IV cipro/flagyl Recommend IV methylprednisolone 20 mg q8h Would check CRP, ESR She will need to establish with colorectal surgery as an outpatient and with a center who IBD specialists ie [facility] given her advance disease without response to available medication options, please help arrange this at time of discharge Thank you for allowing us to participate in the care of this patient. Please call with any acute changes, questions or concerns. Please see addendum below with additional recommendation from my supervising physician. 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 6 cm segment of distal ileum demonstrates circumferential wall thickening with mucosal hyperemia compatible with acute on chronic inflammatory bowel dis ease. Severe associated luminal narrowing compatible with a stricture results in mild associated upstream dilation. 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 3. Mild adenopathy of the right lower quadrant mesentery, likely reactive. 4. Trace free pelvic fluid. 5. Appendectomy. Hospital Course (1) Crohn's disease: -21-year-old white female with an underlying history of IBD/Crohn's disease who has been on multiple biologic agents in the past (Humira, and XT, Remicade, Entyvio, Stelara, and 6MP). -She recently moved from [place] and has not yet established care. 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 Her white blood cell count was normal. ESR and CRP were slightly elevated at 39 and 2.02 respectively -CT of the abdomen and pelvis showed 6 cm area of wall thickening consistent with inflammatory bowel disease with severe luminal narrowing with upstream dilatation and an anteroenteric fistula. She was subsequently hospitalized for further evaluation and care. -Patient was hospitalized where she was made n.p.o. for bowel rest and provided IV hydration -Was seen by both GI and general surgery who recommended conservative management with IV steroids -patient showed favorable response and was subsequently started on clear liquids for which she is tolerating -Patient seen on daily rounds 01/29 and vocalizes no complaints. Denies nausea, vomiting or abdominal discomfort. She is tolerating clear liquids and at this point, I feel that she can be managed at home with a long taper of prednisone but most importantly needs to be seen by IBD specialist. Nurse navigator has arranged this appointment -Patient should return to the ED for any new or worsening symptoms (2) Depression with anxiety: Continue duloxetine 90mg PO daily, trazodone 200mg PO HS PRN (3) Insomnia: Trazodone as above VTE Prophylaxis - low risk Diet - NPO per GI recommendations Disposition - admit to med/surg Total Time Total Time Spent Total Time Spent (In Minutes): 35 Discharge Plan Discharge Items Patient Disposition: Home - Self-Care Reason For Visit: [place] Discharge Diagnosis: 1. Crohn's disease with flare-up Activity: Resume your previous activity Non-emergency contact: Primary Care Provider and Primary Products Inspectors Call non-emergency contact if: you have any medication questions Follow-up/Referrals: Marika Mosquera DO [Outside Practitioners] - 02/08/21 11:20 am (Primary Care with [facility]) Lizz Gallego CRNP [Nurse Practitioner] - 03/16/21 8:00 am ([facility]) Diet: Low Fiber Diet Comment: avoid triggers that could flare up your crohns Addtl Attending Provider Instructions: - you were hospitalized with a flare-up of your Crohn's disease - you have been on multiple disease modifying medication in the past without relief. - you are being sent home with a tapering course of prednisone (long taper) but it is IMPERATIVE that you follow up with GI regarding other disease modifying/controlling medications or you will end up needing a bowel resection and possibly a colostomy bag - avoid known food trigger - return to the ED for new or worsening symptoms Addtl Oven Loader Provider Instructions: A referral has been placed to [facility] on your behalf. Their contact information is #[phone], fax#[phone]. They will review your information, then contact you about scheduling an appointment. They do ask that you have records from any prior GI providers faxed to their office, as this will help them better understand your needs. If you need assistance with having these records sent, or questions about obtaining an appointment, please call the nurse navigator Rebeca Cifuentes at #[phone] and she will be happy to assist you. Pending Studies at Discharge: No Stand-Alone Forms: My [facility] [employer], Smoking Cessation Medications and DC Order Prescriptions: New prednisone 10 mg tablet 10 mg PO DIRECTED Qty: 120 RF: 0 Continued dicyclomine 20 mg Tablet 20 mg PO BID PRN (Reason: Pain) RF: 0 duloxetine [Cymbalta] 30 mg Capsule,Delayed Release(Dr/Ec) 90 mg PO DAILY RF: 0 trazodone 100 mg Tablet 200 mg PO HS PRN (Reason: Sleep) RF: 0 Discharge Orders: Discharge Order (Routine); Ordered 01/29/21 Ordered By: Tammy Clayton Admission Data Admit Date/Time: 01/28/21 13:21 Attending Provider: Georgi Kat Admit Provider: Jacob Em Primary Care Provider: PCP,NO Other Providers: Cheikh Schulz ; Jacob Em ; Lamin Yi Other Interventions: Discharge Summary Assessment (RN) Last Done: 01/29/21 14:06 Supervising Physician Co-Signing Physician Notes Patient seen and examined on the day of discharge. I agree with the discharge summary by Tammy ISRAEL. I have reviewed the chart including labs, imagin g and plans for discharge. patient doing well, no abdominal pain at all, eating well she agrees to follow up with IBD specialist - Crohn's disease with flare: Prednisone 40mg daily with prolonged taper she is new to the area, will need referral to IBD specialist in [place] or [facility] Coding Level of Care Code D/C DAY MANAGEMENT >30 MINS Diagnoses Crohn's disease K50.90 Depression with anxiety F41.8 Insomnia G47.00 Time Spent (min) 35
== END 2021-01-29 15:44 | disposition home or self-care (01) | DRG 387 ==
LOC: ED 07:19 → SUATTDRO 13:21 → 3E 13:21 → INTOOBSV 13:21 → 3E 19:43